=== PATIENT | male | born 1980 | race African-American/Black ===

== ENCOUNTER 2018-01-10 07:30 | Emergency (ER) | payer SELFPAY ==
[~2018-01-10] VITALS: Ht 175.3 cm; Wt 90.0 kg
[2018-01-10 08:20] VITALS: BP 127/69
[2018-01-10] MEDS ORDERED: TETANUS, DIPHTHERIA, PERTUSSIS VAC/PF 0.5ML (>7YR OLD) IM ONE (09:00)
== END 2018-01-10 09:48 | disposition home or self-care (01) ==
LOC: ER 07:53
DX: S52.615A Nondisplaced fracture of left ulna styloid process, initial encounter for closed fracture (principal); S09.8XXA Other specified injuries of head, initial encounter; Y00.XXXA Assault by blunt object, initial encounter; Y93.89 Activity, other specified; Y92.89 Other specified places as the place of occurrence of the external cause
CPT/HCPCS: 29125; 73110; 90471; 90715; 99284